=== PATIENT | female | born 1955 | race Caucasian/White ===

== ENCOUNTER 2018-09-20 15:59 | Emergency (ER) | payer OTHER ==
[2018-09-20 16:18] VITALS: RESP 18; TEMP 98.5
--- NOTE | 2018-09-20 16:37 | C.PDOC ---
History Of Present Illness 63 year old female presents to the ED after being referred by Dr. Jackman for evaluation of headache for one week. Patient states a box of shoes fell onto her head one week ago. She reports occasional headache, for which she has been taking Motrin with mild relief. Patient denies neck pain, dizziness, vision change, nausea, vomiting, extremity numbness/weakness. - HPI Time Seen by Provider: 09/20/18 16:34 Chief Complaint (Nursing): Trauma History Per: Patient History/Exam Limitations: no limitations Onset/Duration Of Symptoms: Days Additional History Per: Patient Past Medical History Reviewed: Historical Data, Nursing Documentation, Vital Signs Vital Signs: Last Vital Signs Temp 98.5 F 09/20/18 16:13 Pulse 67 09/20/18 16:13 Resp 18 09/20/18 16:13 BP 134/77 09/20/18 16:13 Pulse Ox 97 09/20/18 16:13 Primary Care Provider: [place] Manley - Medical History PMH: HTN, Hypercholesterolemia, Hypothyroidism Surgical History: No Surg Hx Family History: States: Unknown Family Hx - Social History Hx Alcohol Use: No Hx Substance Use: No - Immunization History Hx Tetanus Toxoid Vaccination: No Hx Influenza Vaccination: Yes Hx Pneumococcal Vaccination: Yes Review Of Systems Eyes: Negative for: Vision Change Gastrointestinal: Negative for: Nausea, Vomiting Neurological: Positive for: Headache. Negative for: Weakness, Numbness, Dizziness Physical Exam - Physical Exam Appears: Non-toxic, No Acute Distress Skin: Normal Color, Warm, Dry Head: Atraumatic, Normacephalic, No Tenderness (to scalp or head ) Eye(s): bilateral: Normal Inspection, PERRL, EOMI Ear(s): Bilateral: Normal Nose: Normal Oral Mucosa: Moist Neck: Normal ROM, No Midline Cervical Tenderness, No Paracervical Tenderness, Supple Chest: Symmetrical, No Deformity, No Tenderness Cardiovascular: Rhythm Regular, No Murmur Respiratory: Normal Breath Sounds, No Accessory Muscle Use, No Rales, No Rhonchi, No Wheezing Extremity: Normal ROM, Capillary Refill (less than 2 seconds ) Neurological/Psych: Oriented x3, Normal Speech, Normal Cognition, Normal Motor, Normal Sensation Gait: Steady ED Course And Treatment - Laboratory Results Result Diagrams: 09/20/18 17:14 09/20/18 17:14 Lab Interpretation: Normal O2 Sat by Pulse Oximetry: 97 (on RA) Pulse Ox Interpretation: Normal - Radiology CXR: Interpreted by Me, Read By Radiologist CXR Interpretation: Yes: No Acute Disease - Other Rad CXR X-Ray: Viewed By Me, Read By Radiologist Interpretation: IMPRESSION: No focal consolidation. - CT Scan/US CT Head Other Rad Studies (CT/US): Read By Radiologist, Radiology Report Reviewed CT/US Interpretation: IMPRESSION: No acute intracranial pathology identified. Findings as above. CT Cervical Spine Other Rad Studies (CT/US): Read By Radiologist, Radiology Report Reviewed CT/US Interpretation: IMPRESSION: 1. No fracture or spondylolisthesis is appreciated. 2. Multilevel cervical spondylosis as well as variable uncovertebral and facet joint degenerative change but without severe stenosis occurring. Borderline central stenoses are degenerative at C5-6 and C6-7 with a moderate right degenerative neural foraminal stenosis appreciated at C3-4. Progress Note: Bloodwork, CXR, CT Cervical Spine and CT Head ordered and reviewed. Motrin PO given. Reevaluation Time: 18:42 Reassessment Condition: Improved - Physician Consult Information Outcome Of Conversation: d/w Dr. Espinoza [id number] and [id number]. findings reviewed, ok for d/c and opt f/u. Medical Decision Making Medical Decision Making: Frontal/Vertex contusion 1 wk ago (box of shoes landed on head @ work) Mild headaches without neuro changes Head and neck CT's no acute findings improved with NSAIDS Disposition Doctor Will See Patient In The: Office Counseled Patient/Family Regarding: Studies Performed, Diagnosis - Disposition Referrals: West Manley MD [Staff Provider] - Disposition: HOME/ ROUTINE Disposition Time: 18:43 Condition: GOOD Additional Instructions: CT of head and neg negative labs normal Continue Advil/Motrin 400-600 mg every 6 hours as needed for headache pain Follow-up with Dr. Espinoza as needed. Instructions: Headache, Adult, Minor Head Injury (DC) Forms: [facility] (Burmese) - Clinical Impression Clinical Impression: Headaches due to old head trauma - Scribe Statement The provider has reviewed the documentation as recorded by the Scribe (Aura Whitfield) Provider Attestation: All medical record entries made by the Scribe were at my direction and personall y dictated by me. I have reviewed the chart and agree that the record accurately reflects my personal performance of the history, physical exam, medical decision making, and the department course for this patient. I have also personally directed, reviewed, and agree with the discharge instructions and disposition.
--- NOTE | 2018-09-20 17:04 | RAD ---
HISTORY: Code Stroke COMPARISON: None available. TECHNIQUE: Chest PA and lateral, 2 views FINDINGS: LUNGS: No focal consolidation. Please note that chest x-ray has limited sensitivity for the detection of pulmonary masses. PLEURA: No significant pleural effusion identified. No definite pneumothorax . CARDIOVASCULAR: Heart size appears within normal limits. Ectatic aorta containing atherosclerotic calcifications. OSSEOUS STRUCTURES: Degenerative changes of the spine. VISUALIZED UPPER ABDOMEN: Unremarkable. OTHER FINDINGS: None. IMPRESSION: No focal consolidation.
[2018-09-20 17:18] LABS: BASO % 0.3 % (0.0-2.0); EOS # 0.3 K/uL (0.0-0.7); EOS % 3.5 % (0.0-4.0); HEMOGLOBIN 12.9 g/dL (11.0-16.0); LYMPH # 2.6 K/uL (1.0-4.3); LYMPH % 29.9 % (20.0-40.0); MEAN CELL VOLUME 87.1 fL (81.0-99.0); MEAN CORPUSCULAR HEMOGLOBIN 29.6 pg (27.0-31.0); MONO # 0.5 K/uL (0.0-0.8); MONO % 5.6 % (0.0-10.0); NEUT # 5.3 K/uL (1.8-7.0); NEUT % 60.7 % (50.0-75.0); RBC 4.36 Mil/uL (3.80-5.20); RED CELL DISTRIBUTION WIDTH 14.6 % (11.5-14.5); WHITE BLOOD COUNT 8.8 K/uL (4.8-10.8)
[2018-09-20 17:32] LABS: ALB/GLOB RATIO 1.2 (1.0-2.1); ALT/SGPT 32 U/L (9-52); AST/SGOT 30 U/L (14-36); BLOOD UREA NITROGEN 30 mg/dL (7-17); CALCIUM 10.1 mg/dl (8.6-10.4); GFR NON-AFRICAN AMERICAN > 60
[2018-09-20 17:35] LABS: PROTHROMBIN TIME 11.4 SECONDS (9.7-12.2)
--- NOTE | 2018-09-20 18:10 | CT ---
Date of service: 09/20/2018 PROCEDURE: CT HEAD WITHOUT CONTRAST. HISTORY: Vertex contusion x 1 wk, DE SOUZA's COMPARISON: None available. TECHNIQUE: Axial computed tomography images were obtained through the head/brain without intravenous contrast. Radiation dose: Total exam DLP = 903.22 mGy-cm. This CT exam was performed using one or more of the following dose reduction techniques: Automated exposure control, adjustment of the mA and/or kV according to patient size, and/or use of iterative reconstruction technique. FINDINGS: HEMORRHAGE: No intracranial hemorrhage. BRAIN: No mass effect or edema. Scattered periventricular and subcortical white matter hypodensities, which are nonspecific, but often seen with chronic microvascular ischemic disease. Please note that MRI with diffusion imaging is more sensitive in the detection of acute ischemic event. VENTRICLES: No hydrocephalus. CALVARIUM: Unremarkable. PARANASAL SINUSES: Unremarkable as visualized. No significant inflammatory changes. MASTOID AIR CELLS: Unremarkable as visualized. No inflammatory changes. OTHER FINDINGS: None. IMPRESSION: No acute intracranial pathology identified. Findings as above.
--- NOTE | 2018-09-20 18:40 | CT ---
Date of service: 09/20/2018 PROCEDURE: CT Cervical Spine without contrast HISTORY: vertex contusion 1 wk ago, DE SOU[facility]'s COMPARISON: None available. TECHNIQUE: Axial computed tomography images were obtained of the cervical spine without the use of intravenous contrast. Coronal and sagittal reformatted images were created and reviewed. Radiation dose: Total exam DLP = 394.47 mGy-cm. This CT exam was performed using one or more of the following dose reduction techniques: Automated exposure control, adjustment of the mA and/or kV according to patient size, and/or use of iterative reconstruction technique. FINDINGS: VERTEBRAE: No fracture. Normal alignment. No destructive bony lesion. DISCS/SPINAL CANAL/NEURAL FORAMINA: Relatively extensive multilevel degenerative disease appreciated throughout the cervical spine with C2-3 and C7-T1 least affected. Spondylosis identified prominently at the mid cervical spine, predominantly anteriorly with endplate sclerosis nearly diffusely seen throughout the cervical spine. Variable disc height loss is identified. Moderate multilevel facet joint degenerative changes are present. C1-2 articulation is degenerated but intact otherwise. Craniocervical junction is intact. Discs heights are grossly preserved. At C3-4, a small disc osteophyte complex is appreciated invading the inverting the ventral thecal sac and encroaching ventral nerve roots. Lateral osteophytes cause a moderate right neural foraminal stenosis but none is seen at the left. At C4-5, no bony central canal or neural foraminal stenosis is encountered. At C5-6, a moderate posterior disc osteophyte complex inverting the ventral thecal sac and encroaches ventral nerve roots causing borderline central canal stenosis. Mild bilateral neural foraminal stenosis is identified on degenerative basis. At C6-7, posterior disc osteophyte complex encroaches ventral nerve roots and causing borderline central stenosis. Borderline bilateral degenerative neural foraminal stenosis is also noted. C2-3 and C7-T1 appear unremarkable. PARASPINAL SOFT TISSUES: Unremarkable. OTHER FINDINGS: None. IMPRESSION: 1. No fracture or spondylolisthesis is appreciated. 2. Multilevel cervical spondylosis as well as variable uncovertebral and facet joint degenerative change but without severe stenosis occurring. Borderline central stenoses are degenerative at C5-6 and C6-7 with a moderate right degenerative neural foraminal stenosis appreciated at C3-4.
[2018-09-20 18:56] VITALS: BP 119/72; PULSE 69
[2018-09-20 20:29] VITALS: O2SAT 97
== END 2018-09-20 18:56 | disposition home or self-care (01) ==
LOC: C.ER 15:59
DX: S09.90XA Unspecified injury of head, initial encounter (principal); W22.8XXA Striking against or struck by other objects, initial encounter; R51 Headache